=== PATIENT | female | born 1990 | race Caucasian/White ===

== ENCOUNTER 2023-03-20 20:25 | Outpatient (CLI) | payer MEDICAID, SELFPAY | END 2023-03-20 20:26 | disposition home or self-care (01) | LOC: AMB 04-13 15:02 | PROVIDERS: Visit Provider Family Medicine | DX: R56.9 Unspecified convulsions (principal) | CPT/HCPCS: A0425; A0427 ==

== ENCOUNTER 2023-03-20 21:06 | Emergency (ER) | payer MEDICAID, SELFPAY ==
[2023-03-20] VITALS (40 sets, daily range): BP systolic 101–129; BP diastolic 47–98; PULSE 81–130; RESP 11–22; TEMP 36.2; O2SAT 93–100; BMI 197.7
[2023-03-20] MEDS: 0.9 % SODIUM CHLORIDE 1000 ml 1,000 ML 125 ML IV (21:20)
[2023-03-20] MEDS: PROPOFOL 10 MG/ML INJ 150 MG IVP (21:21)
[2023-03-20] MEDS: MIDAZOLAM HCL 1 MG/ML inj 4 MG IVP (21:21)
[2023-03-20] MEDS: PROPOFOL 10 MG/ML INJ 50 MG IVP (21:21)
[2023-03-20] MEDS: SUCCINYLCHOLINE 20 MG/ML INJ 100 MG IVP (21:25)
[2023-03-20] MEDS: propofoL 1,000 MG/100 ML ML 34.2 MG IVPB (21:30)
[2023-03-20] MEDS: fentaNYL 100 MCG/2 ML inj IVP (21:38)
--- NOTE | 2023-03-20 21:43 | CRLHL7_ITS ---
For Patients: As a result of the Century Cures Act, medical imaging exams and procedure reports are released immediately into your electronic medical record. You may view this report before your referring provider. If you have questions, please contact your health care provider. INDICATION: Intubation placement TECHNIQUE: Chest 1 view. Permanently recorded images are archived. COMPARISON: None. FINDINGS/IMPRESSION: : Lines and tubes: The endotracheal tube tip is approximately 6 mm above the chevy. Recommend slight retraction. Subdiaphragmatic enteric tube with the tip projecting over the mid stomach Partially imaged, vertically oriented redundant tubing along the right aspect the thorax and abdomen. Unclear etiology and location. The redundancy excludes a ventriculoperitoneal shunt catheter. Recommend clinical correlation. Low lung volumes with bronchovascular crowding. Left basilar opacity likely represents atelectasis; however, cannot exclude aspiration or infection. No definite pleural effusion or pneumothorax. The cardiomediastinal silhouette is unremarkable. The osseous structures are unremarkable for age. Dictated by Tim Valdez MD @ 03/20/2023 10:44:59 PM (Electronically Signed)
[2023-03-20] MEDS: 0.9 % SODIUM CHLORIDE 500 ML 500 ML 1000 ML IV (22:00)
--- NOTE | 2023-03-20 22:12 | PC.NURSE ---
Arrived via EMS with status seizures. Upon arrival pt yelling, seizures and then an apneic period. BS 200.Pt c/o of pain in leg. don't let me ! All cares explained.
--- NOTE | 2023-03-20 22:21 | ED_ITS ---
HPI - Seizure General Time Seen by Provider: 22:21 Date Seen: 03/20/23 Chief Complaint: Seizure Stated Complaint: siezure Source: patient, EMS and RN notes reviewed Mode of arrival: EMS Limitations: altered mental status History of Present Illness HPI Narrative: Christel is a 33-year-old female with a history of autism spectrum, asthma, prediabetes as well as seizure disorder who comes to the emergency room for evaluation and treatment of ongoing seizures. Patient is visiting her friend here and is originally from the [facility]. EMS was called to a home in this response area to find patient with ongoing seizure activity described as grand mall by the infrastructure security architect. Christel was noted to have had seizures last week and was hospitalized for 3-4 days according to a friend at [facility]. As far as a friend knows there has been no recent trauma falls and there has been no drug use. Paramedics note that they were unable to establish IV access and thus she patient was given Versed intranasally which briefly stopped the seizure before it began again. Patient was then given 10 mg IM Versed. Attempts at IV placement unsuccessful and an IO in the right tibial did not flush easily. Patient continued to have intermittent seizures and route to the hospital with no loss of bowel or bladder control and with brief episodes of talking mostly concerning the IO causing her pain. EMS notes blood sugar greater than 200 and route. Upon arrival patient was noted to be rather confused but maintaining airway. Once we got into the room she appeared to have decreased respirations and was given airway assistance with BVM. She then became aware was breathing talking but would intermittently have her eyes deviate to the back of her head and she would then start having seizure-like movements. This continued and at 1 point she did have some vomitus and excess saliva in the mouth and decision was made to intubate. Addendum: Medications that we have prepackaged in the bag that accompanies patient include fluoxetine Cetirizine Vitamin-D Pantoprazole Famotidine Topiramate Hydroxyzine Trazodone at the evening doxepin Olanzapine Related Data Allergies Allergy/AdvReac Type Severity Reaction Status Date / Time amoxicillin Allergy Unknown Verified 03/20/23 21:55 Latex, Natural Rubber Allergy Unknown Verified 03/20/23 21:55 Opioids - Morphine Analogues Allergy Unknown Verified 03/20/23 21:55 Review of Systems Status of ROS: Reports: unobtainable due to mental status Narrative: Per patient's friend no recent trauma. Recent hospitalization at [place] for seizures. Exam Narrative: Exam Narrative: Able to access patient's phone which gave us information regarding her medications as well as medical problems. This does include asthma, pre diabetes, seizure disorder. Her friend does tell her that she does have autism as well. Patient was awake initially able to focus on me and state that she did not want and I 0 and would look at her legs. She would then have episodes of staring eye deviation and whole body shaking that would last for 30-45 seconds. Her heart is with a tachycardic rate in the 120s to 130s. Her lungs are clear her abdomen is soft she is moving all her extremities purposefully when she is awake. She has no evidence of trauma on her head. Her okay oral cavity shows dentition intact. No swelling of the mucous membranes. Fine erythematous reticular type rash on the neck and upper chest. No other evidence of rash. Const: Vital Signs, click to edit/add: Vital Signs - 24 hr 03/20/23 21:10 03/20/23 21:10 03/20/23 21:45 Temperature 97.2 F L Pulse Rate Pulse Rate [Pulse Oximeter] 130 H Respiratory Rate 22 Blood Pressure Pulse Oximetry 94 96 Oxygen Delivery Me thod Ambu-Bag Room Air Oxygen Flow Rate 10 03/20/23 21:45 03/20/23 21:46 03/20/23 21:47 Temperature Pulse Rate 109 H 107 H 105 H Pulse Rate [Pulse Oximeter] Respiratory Rate 13 11 L 12 Blood Pressure 116/98 H 101/47 L Pulse Oximetry 98 98 98 Oxygen Delivery Me thod Oxygen Flow Rate 03/20/23 21:51 03/20/23 21:56 03/20/23 22:00 Temperature Pulse Rate 104 H 105 H 102 H Pulse Rate [Pulse Oximeter] Respiratory Rate 12 17 18 Blood Pressure 106/59 L 108/58 L Pulse Oximetry 98 93 94 Oxygen Delivery Me thod Oxygen Flow Rate 03/20/23 22:02 03/20/23 22:06 03/20/23 22:11 Temperature Pulse Rate 103 H 101 H 100 Pulse Rate [Pulse Oximeter] Respiratory Rate 18 18 18 Blood Pressure 123/54 L 109/59 L 110/69 Pulse Oximetry 94 96 96 Oxygen Delivery Me thod Oxygen Flow Rate 03/20/23 22:15 03/20/23 22:17 03/20/23 22:21 Temperature Pulse Rate 97 102 H 96 Pulse Rate [Pulse Oximeter] Respiratory Rate 18 16 17 Blood Pressure 112/73 113/73 Pulse Oximetry 97 97 98 Oxygen Delivery Me thod Oxygen Flow Rate 03/20/23 22:26 03/20/23 22:30 03/20/23 22:31 Temperature Pulse Rate 94 92 92 Pulse Rate [Pulse Oximeter] Respiratory Rate 17 17 17 Blood Pressure 112/71 115/74 Pulse Oximetry 98 98 98 Oxygen Delivery Me thod Oxygen Flow Rate 03/20/23 22:36 03/20/23 22:37 03/20/23 22:41 Temperature Pulse Rate 91 89 89 Pulse Rate [Pulse Oximeter] Respiratory Rate 17 17 17 Blood Pressure 114/75 114/78 Pulse Oximetry 99 99 99 Oxygen Delivery Me thod Oxygen Flow Rate 03/20/23 22:45 03/20/23 22:46 03/20/23 22:51 Temperature Pulse Rate 89 90 90 Pulse Rate [Pulse Oximeter] Respiratory Rate 17 17 18 Blood Pressure 121/80 126/89 Pulse Oximetry 99 99 100 Oxygen Delivery Me thod Oxygen Flow Rate 03/20/23 22:56 03/20/23 23:00 03/20/23 23:01 Temperature Pulse Rate 88 88 88 Pulse Rate [Pulse Oximeter] Respiratory Rate 18 17 18 Blood Pressure 121/86 121/81 Pulse Oximetry 99 99 99 Oxygen Delivery Me thod Oxygen Flow Rate 03/20/23 23:06 03/20/23 23:12 03/20/23 23:15 Temperature Pulse Rate 86 84 85 Pulse Rate [Pulse Oximeter] Respiratory Rate 18 18 18 Blood Pressure 126/89 121/83 Pulse Oximetry 100 99 99 Oxygen Delivery Me thod Oxygen Flow Rate 03/20/23 23:16 03/20/23 23:21 03/20/23 23:26 Temperature Pulse Rate 83 84 84 Pulse Rate [Pulse Oximeter] Respiratory Rate 18 18 18 Blood Pressure 122/84 123/86 125/82 Pulse Oximetry 99 99 99 Oxygen Delivery Me thod Oxygen Flow Rate 03/20/23 23:30 03/20/23 23:31 03/20/23 23:36 Temperature Pulse Rate 82 81 82 Pulse Rate [Pulse Oximeter] Respiratory Rate 18 18 18 Blood Pressure 124/83 125/87 Pulse Oximetry 99 99 99 Oxygen Delivery Me thod Oxygen Flow Rate 03/20/23 23:41 03/20/23 23:45 03/20/23 23:46 Temperature Pulse Rate 82 81 81 Pulse Rate [Pulse Oximeter] Respiratory Rate 18 18 18 Blood Pressure 126/89 122/81 Pulse Oximetry 99 99 99 Oxygen Delivery Me thod Oxygen Flow Rate Documenting provider has reviewed patient's vital signs: yes Course Course Hospital Course: Given patient's intermittent episodes of seizure and worry of airway protection I did make the decision to intubate very early. However, we did not have an established IV. We did have oral and nasal airways standing by but patient would wake up and this was very distressing to her. She did tolerate nasal cannula oxygen and BVM when she was having seizures. IV was then established in the left arm. We were able to push 100 mg of propofol and attempts at intubation of were unsuccessful as patient started gagging. We then did a continue to bag patient and 100 of vecuronium was given. Successful intubation using the glide scope and a 7.0 ET tube. Cords visualized and ET tube entering the cords accomplished. Initially patient did have decreased breath sounds on the left. We did pullback ET tube and had bilateral breath sounds as well as rising oxygen and appropriate end-tidal. Oxygen was switched from nasal cannula to ET tube at this time. O2 levels at 97%. Patient heart rate improved to 1 teens. And blood pressure was appropriate. We initially considered rocuronium as patient would occasionally have episodes of body twitching but would like to hold off on this for now. Instead she was placed on propofol drip at 100 mcg per hour. Fentanyl l 100 mcg given and heart rate normalizes. Patient then placed on vent. Keppra 1 g IV currently giving. Patient completed 1 L of normal saline and is now on maintenance fluids. An IO in the right humeral head was placed. During this time it IV was also placed in the foot. Note that the IO in the right tibia is not patent. Reevaluation(s) Reevaluation #1: Chest x-ray shows appropriate placement of ET tube. Twenty-two at the teeth. Reevaluation #2: Patient noted to have normal vital signs continues to be seizure-free on propofol drip. We are decreasing that amount to 75 mcg an hour. We have ob tained acceptance from [facility] system but have still not been able to speak to a physician. Reevaluation #3: BAIT TIER was able to get IV in foot. IO removed from right tibia. Vital Signs Vital signs: Initial Vital Signs Pulse Oximetry 94 03/20/23 21:10 Oxygen Delivery Method Ambu-Bag 03/20/23 21:10 Oxygen Flow Rate 10 03/20/23 21:10 Vital Signs Pulse Oximetry 94 03/20/23 21:10 Oxygen Delivery Method Ambu-Bag 03/20/23 21:10 Oxygen Flow Rate 10 03/20/23 21:10 Temperature 97.2 F L 03/20/23 21:45 Pulse Rate 81 03/20/23 23:46 Respiratory Rate 18 03/20/23 23:46 Blood Pressure 122/81 03/20/23 23:46 Pulse Oximetry 99 03/20/23 23:46 Oxygen Delivery Method Room Air 03/20/23 21:45 Oxygen Flow Rate 10 03/20/23 21:10 MDM - Seizure MDM Narrative Medical decision making narrative: 1. Status seizure-intranasal Versed, Versed 10 mg IM, Ativan 2 mg given on scene. Here in the emergency room patient placed on propofol fall drip after intubation and Keppra 1 g is given. Patient has been stable during this time. 2. History of asthma 3. History of autism spectrum disorder 4. Disposition-currently waiting acceptance from [facility] as patient is a [place] patient. We were a bit able to obtain records after patient was intubated. She does have a history of pseudoseizures and recent evaluation at [facility] on March 11 and at [facility] on March [address] at that time that was normal. She has a history of a CERTIFIED ORTHOTIC FITTER shunt as well. According to her friend no drug use but according to her chart she has used in the past. Despite the information of pseudoseizures I did feel the need to intubate given the apneic episodes as well as the need for frequent suctioning when this would occur. I do not feel that I had any recourse but to intubate to protect the airway. 12/11/2047: Able to speak with Dr. Prasad, ICU physician at the [facility]. He does accept this patient in transfer. I did relate to her patient's past history of pseudoseizures and the need to intubate here. Did states that we did not do CT here. Did states that the labs were pending at this time. Patient continues to be stable. Propofol was decreased to 75 mcg. Patient did receive 1 g of Keppra. Lab Data Attestation: I reviewed the patient's lab results. Imaging Data Chest x-ray: Attestation: I have reviewed the pertinent imaging results. My impression: No obvious infiltrates, nor thorax. Endotracheal tube appears to be approximately 1 cm above chevy Radiologist's impression: Lines and tubes: The endotracheal tube tip is approximately 6 mm above the chevy. Recommend slight retraction. Subdiaphragmatic enteric tube with the tip projecting over the mid stomach Partially imaged, vertically oriented redundant tubing along the right aspect the thorax and abdomen. Unclear etiology and location. The redundancy excludes a ventriculoperitoneal shunt catheter. Recommend clinical correlation. Low lung volumes with bronchovascular crowding. Left basilar opacity likely represents atelectasis; however, cannot exclude aspiration or infection. No definite pleural effusion or pneumothorax. The cardiomediastinal silhouette is unremarkable. The osseous structures are unremarkable for age. Critical Care Time Critical Care Time Critical Care Time: Yes Attestation: The patient required my highest level preparedness to intervene emergently and I personally spent this critical care time directly and personally managing the patient. This critical care time included: Obtaining a history; Examining the patient; Pulse oximetry; Ordering and reviewing of studies; Arranging urgent treatment with development of a management plan; Evaluation of patients response to treatment; Frequent reassessment discussions with other providers. This critical care time was performed to assess and manage the high probability of imminent life-threatening deterioration that could result in multiorgan failure. It was exclusive of separate billable procedures and treating other patients and teaching time. Total Critical Care Time in Minutes: 60 Discharge Plan Discharge Clinical Impression: Intractable seizure disorder Patient Disposition: [facility] Discharge Location: [facility] Hosp Condition: Improved
--- NOTE | 2023-03-20 22:52 | ED.NURSE ---
Attempted to call contacts listed in patient's chart. Contact one's phone did not go through. Left brief message for her machine adjuster leader case trim and contact #2. No answer when tried to reach contact # 3.
[2023-03-20 23:59] LABS: Basophils Percent Auto 0.2 % (0.0-3.0); Hematocrit 34.2 % (33.0-51.0); Immature Granulocytes Pct Auto 0.9 %; Lymphocytes Percent Auto 37.6 % (20-44); Mean Corpuscular HGB Conc 32 gm/dL (32-36); Mean Corpuscular Hemoglobin 26 pg (26-34); Mean Corpuscular Volume 81 fL (80-100); Monocytes Percent Auto 8.5 % (0.0-11.0); Neutrophils Percent Auto 52.8 % (42.0-72.0); Platelet Count* 280 K/uL (140-440); RDW Coefficient of Variation % 14.3 % (11.5-15.5); Red Blood Count 4.24 m/uL (4.00-5.20); Slide Review Reflex No; White Blood Count* 4.36 K/uL (4.50-11.00)
[2023-03-21] VITALS (12 sets, daily range): BP systolic 127–134; BP diastolic 87–95; PULSE 82–86; RESP 14–18; O2SAT 98–100
[2023-03-21] LABS: Chloride* 108 mmol/L (96-114)
[2023-03-21 00:01] LABS: Albumin* 3.9 g/dL (3.3-5.0); Potassium* 3.7 mmol/L (3.6-5.1); Sodium* 138 mmol/L (135-149)
[2023-03-21 00:03] LABS: Carbon Dioxide* 22 mmol/L (20-32); Creatinine* 0.7 mg/dL (0.5-1.5); Est. Creatinine Clearance* 135.87; Estimated Glomerular Filt Rate 116 ml/min
[2023-03-21 00:04] LABS: Alanine Aminotransferase* 40 U/L (4-35); Alkaline Phosphatase* 74 U/L (40-150); Aspartate Amino Transferase* 45 U/L (12-35); Bilirubin Total* 0.3 mg/dL (0.1-1.5); Blood Urea Nitrogen* 13 mg/dL (5-24); Calcium* 8.6 mg/dL (8.4-10.6); Glucose* 88 mg/dL (60-115); Total Protein* 7.1 g/dL (6.0-8.3)
[2023-03-21 00:06] LABS: Ethanol* < 0.01 % (0.01-0.03)
[2023-03-21] MEDS: propofoL 1,000 MG/100 ML ML 34.2 MG IVPB (00:13)
--- NOTE | 2023-03-21 00:30 | ED.NURSE ---
pt arrived via ems having seizures, MD Pino at bedside on arrival. pt BMV r/t apnea. MD intubated, bilat lung sounds positive. 22 at teeth, oxygenation improved to upper 90%. NG tube placed at 59 low int suction, gastric fluid output. 16 f Delaney placed without complication, urine sent to lab.
[2023-03-21] MEDS: fentaNYL 100 MCG/2 ML inj IVP (00:40)
--- NOTE | 2023-03-21 00:45 | ED.NURSE ---
report to Shaan RN, pt to [address] [place] [address] u kandis brooke. ems at bedside preparing pt for transport.
== END 2023-03-21 00:49 | disposition short-term general hospital (02) ==
PROVIDERS: Emergency Provider Family Medicine
DX: G40.919 Epilepsy, unspecified, intractable, without status epilepticus (principal)
CPT/HCPCS: 31500; 36415; 71045; 80053; 80306; 81001; 82077; 85025; 94761; 96365; 96366; 96375; 99285; 99291; J0330; J1953; J2250; J2704; J3010; J7030; J7120

== ENCOUNTER 2023-03-21 00:48 | Outpatient (CLI) | payer MEDICAID, SELFPAY | END 2023-03-21 00:49 | disposition home or self-care (01) | LOC: AMB 03-26 10:56 | PROVIDERS: Visit Provider Family Medicine | DX: R56.9 Unspecified convulsions (principal) | CPT/HCPCS: A0425; A0434 ==

== ENCOUNTER 2023-11-20 17:19 | Outpatient (CLI) | payer MEDICAID, SELFPAY | END 2023-11-20 17:20 | disposition home or self-care (01) | LOC: AMB 11-21 00:41 | PROVIDERS: Visit Provider Family Medicine | DX: G40.909 Epilepsy, unspecified, not intractable, without status epilepticus (principal) | CPT/HCPCS: A0425; A0433 ==

== ENCOUNTER 2023-11-20 17:56 | Emergency (ER) | payer MEDICAID, SELFPAY ==
[2023-11-20] VITALS (46 sets, daily range): BP systolic 97–143; BP diastolic 67–126; PULSE 88–138; RESP 10–24; TEMP 36.4; O2SAT 86–100; BMI 34.0
[2023-11-20] MEDS: LORazepam 2 MG/ML inj IVP (18:08)
[2023-11-20] MEDS: 0.9 % SODIUM CHLORIDE 1000 ml 1,000 ML IV (18:10)
--- NOTE | 2023-11-20 18:13 | CT_ITS ---
Patient: ANAND ANGEL Facility:?[facility] Patient ID:?[id number] Site Patient ID:?[id number]. Site :?[id number] Study:?CT-Head WO-11/20/2023 6:49:29 PM Ordering Physician:ROBERTO Final Report: INDICATIONS: Recent seizures. Prior shunt. TECHNIQUE: CT head without contrast. COMPARISON: None available. FINDINGS: Ventricular catheter via a right parietal approach with tip terminating near the midline in the frontal horn of the left lateral ventricle appears intact. Asymmetric dilatation of the posterior left lateral ventricle is likely compensatory as a result of prior insult or developmental abnormality of the left parietal lobe. There is diffuse encephalomalacia of the left parietal and occipital lobes. No definite hydrocephalus. No significant mass effect or midline shift. No CT evidence of acute hemorrhage or infarction. No subdural hematoma. Bone windows show no acute or suspicious osseous abnormality. Mucosal thickening of the maxillary sinuses, left greater than right. IMPRESSION: 1. No acute intracranial hemorrhage or midline shift. 2. Ventricular catheter via a right parietal approach appears appropriately positioned. No hydrocephalus. 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 Dictated by Tello Brown MD @ 11/20/2023 7:40:38 PM Please note that all CT scans at this facility use dose modulation, iterative reconstruction, and/or weight-based dosing when appropriate to reduce radiation dose to as low as reasonably achievable. Dictated by: Tello Brown MD @ 11/20/2023 19:41:18 (Electronic Signature)
--- NOTE | 2023-11-20 18:16 | ED_ITS ---
HPI - General Adult General Chief complaint: Seizure Stated complaint: Seizures Time Seen by Provider: 11/20/23 18:12 History of Present Illness HPI narrative: EMS picked patient up at a friend's house with report of 11 seizures today. Patient with seizure like activity while being pulled from ambulance though patient is alert and responsive following these episodes. She received divided doses of a total of 3mg Versed NS 4MG Ativan. FSG was 118. Patient arrives with IO in left shoulder as IV access was too difficult to obtain in route . 33-year-old female to male transgender man goes by Desmond presents to emergency department brought by EMS following numerous seizures. Known history of epilepsy, actually pseudoseizures treated with topiramate. 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 History of [employer] shunt. No trauma noted recently but over the course the day has now experienced 12 seizures by the time EMS is handing off. They have an IO in the left humeral head and have given a total of 4 mg of Versed and and 3 of Ativan by the time we are evaluating. Seizures are breaking with med administration lasting a minute and half to 2 minutes. There are total body. Off oxygen EMS does report desaturations to 80%. Desmond is groaning and alert on transfer to ER cot. Complaining of pain in the left humerus. Denies recent medication changes. No fevers. Only complaint of pain again is in the left humerus. Reviewing records this last year I believe in February was intubated here for airway protection following recurrent seizures and desaturation and placed on a propofol drip. Transferred to [facility]. Medication sheet is brought here. Includes Cetirizine Montelukast Meloxicam Fluoxetine Trazodone Lurasidone 40 mg at bedtime Hydroxyzine Topiramate 150 mg b.i.d. Famotidine Pregabalin Related Data Home Medications Medication Instructions Recorded Confirmed famotidine 20 mg tablet 20 mg PO BID 11/20/23 11/20/23 fluoxetine 40 mg capsule 40 mg PO DAILY 11/20/23 11/20/23 fluticasone furoate 200 1 ea inhalation DAILY 11/20/23 11/20/23 mcg-vilanterol 25 mcg/dose inhalation powder (Breo Ellipta) hydroxyzine HCl 50 mg tablet 50 mg PO 3XD 11/20/23 11/20/23 hydroxyzine pamoate 100 mg capsule 100 mg PO QPM 11/20/23 11/20/23 levalbuterol tartrate 45 inhalation 11/20/23 mcg/actuation aerosol inhaler (Xopenex HFA) levonorgestrel-ethinyl estradiol tab PO 11/20/23 0.1 mg-20 mcg tablet (Aviane) lurasidone 40 mg tablet mg PO 11/20/23 meloxicam 15 mg tablet 15 mg PO DAILY 11/20/23 11/20/23 methocarbamol 750 mg tablet 750 mg PO 3XD 11/20/23 11/20/23 montelukast 10 mg tablet 10 mg PO DAILY 11/20/23 11/20/23 pregabalin 75 mg capsule 75 mg PO BID 11/20/23 11/20/23 rizatriptan 10 mg tablet mg PO DAILY 11/20/23 topiramate 100 mg tablet 100 mg PO BID 11/20/23 11/20/23 trazodone 100 mg tablet 200 mg PO QPM PRN 11/20/23 11/20/23 Allergies Allergy/AdvReac Type Severity Reaction Status Date / Time amoxicillin Allergy Unknown Verified 03/20/23 21:55 Latex, Natural Rubber Allergy Unknown Verified 03/20/23 21:55 Opioids - Morphine Analogues Allergy Unknown Verified 03/20/23 21:55 Review of Systems Status of ROS: Reports: 6 or more systems reviewed and unremarkable except as noted in History and below [facility] Social History Smoking Status: Unknown if ever smoked Non-prescribed substance use details: kayden service: No Exam Narrative: Exam Narrative: As Desmond is being transferred to the ER cot began seizing again. Total body. Begins foaming at the mouth clenching stiffening diffusely. IO is present at the left humeral head. There is some bleeding in the area from prior attempt. Oxygen is in place this seizure lasts approximately 2 minutes before we are able to get Ativan 2 mg drawn up and injected. I had also ordered for a L of normal saline bolus. Are attempting to obtain more IVs. This has been a challenge in the past. Desats to 91% in this seizure though on nasal cannula oxygen. Following this administration nearly immediately is conversant. Calling out about the degree of anxiety that he has. He does not appear particularly postictal. Clearly uncomfortable complaining of pain in the left humerus. Exam again with atraumatic head. Oropharynx appears to be atraumatic. Has not lost control of bowel or bladder. Lungs appear to be clear. Heart is tachycardic in regular rhythm. Abdomen is soft overweight. Appears to be nontender. Moving all extremities though protecting the left arm. Appears to have full strength. No indication trauma otherwise. Pupils are 3 mm and equal and brisk. Const: Vital Signs, click to edit/add: Vital Signs - 24 hr 11/20/23 18:15 11/20/23 18:27 11/20/23 18:28 Temperature 97.5 F L Pulse Rate 118 H 118 H Pulse Rate [Pulse Oximeter] 138 H Respiratory Rate 22 Blood Pressure 115/79 Blood Pressure [Ri ght Upper Arm] 143/126 H Pulse Oximetry 100 95 97 Oxygen Delivery Me thod Nasal Cannula Oxygen Flow Rate 6 11/20/23 18:30 11/20/23 18:58 11/20/23 19:00 Temperature Pulse Rate 117 H 124 H 114 H Pulse Rate [Pulse Oximeter] Respiratory Rate Blood Pressure Blood Pressure [Ri ght Upper Arm] Pulse Oximetry 96 96 95 Oxygen Delivery Me thod Oxygen Flow Rate 11/20/23 19:15 11/20/23 19:19 11/20/23 19:22 Temperature Pulse Rate 132 H 126 H 114 H Pulse Rate [Pulse Oximeter] Respiratory Rate 24 Blood Pressure 107/84 125/113 H Blood Pressure [Ri ght Upper Arm] Pulse Oximetry 86 L 100 97 Oxygen Delivery Me thod Oxygen Flow Rate 11/20/23 19:26 11/20/23 19:30 11/20/23 19:31 Temperature Pulse Rate 114 H 119 H 114 H Pulse Rate [Pulse Oximeter] Respiratory Rate 10 L 24 24 Blood Pressure 119/86 115/72 Blood Pressure [Ri ght Upper Arm] Pulse Oximetry 94 96 94 Oxygen Delivery Me thod Oxygen Flow Rate 11/20/23 19:37 11/20/23 19:41 11/20/23 19:45 Temperature Pulse Rate 107 H 102 H 100 Pulse Rate [Pulse Oximeter] Respiratory Rate 20 21 18 Blood Pressure 97/75 99/73 Blood Pressure [Ri ght Upper Arm] Pulse Oximetry 93 90 92 Oxygen Delivery Me thod Oxygen Flow Rate 11/20/23 19:47 11/20/23 19:52 11/20/23 19:53 Temperature Pulse Rate 102 H 98 96 Pulse Rate [Pulse Oximeter] Respiratory Rate 19 19 19 Blood Pressure 101/68 98/70 Blood Pressure [Ri t Upper Arm] Pulse Oximetry 93 95 95 Oxygen Delivery Me thod Oxygen Flow Rate 11/20/23 19:57 11/20/23 20:00 11/20/23 20:02 Temperature Pulse Rate 97 99 95 Pulse Rate [Pulse Oximeter] Respiratory Rate 18 19 18 Blood Pressure 102/71 104/74 Blood Pressure [Ri t Upper Arm] Pulse Oximetry 95 95 96 Oxygen Delivery Me thod Oxygen Flow Rate 11/20/23 20:07 11/20/23 20:11 11/20/23 20:15 Temperature Pulse Rate 99 101 H 103 H Pulse Rate [Pulse Oximeter] Respiratory Rate 18 18 19 Blood Pressure 100/72 102/77 Blood Pressure [Ri t Upper Arm] Pulse Oximetry 93 92 93 Oxygen Delivery Me thod Oxygen Flow Rate 11/20/23 20:16 11/20/23 20:30 11/20/23 20:31 Temperature Pulse Rate 99 101 H 100 Pulse Rate [Pulse Oximeter] Respiratory Rate 19 19 18 Blood Pressure 101/73 107/72 Blood Pressure [Ri t Upper Arm] Pulse Oximetry 92 93 93 Oxygen Delivery Me thod Oxygen Flow Rate 11/20/23 20:45 11/20/23 20:47 Temperature Pulse Rate 95 97 Pulse Rate [Pulse Oximeter] Respiratory Rate 17 18 Blood Pressure 102/67 Blood Pressure [Ri t Upper Arm] Pulse Oximetry 93 94 Oxygen Delivery Me thod Oxygen Flow Rate Documenting provider has reviewed patient's vital signs: yes Course Vital Signs Vital signs: Initial Vital Signs Temperature 97.5 F L 11/20/23 18:15 Temperature Source Temporal Artery Scan 11/20/23 18:15 Pulse Rate 138 H 11/20/23 18:15 Respiratory Rate 22 11/20/23 18:15 Blood Pressure 143/126 H 11/20/23 18:15 Blood Pressure Mean 131 H 11/20/23 18:15 Pulse Oximetry 100 11/20/23 18:15 Oxygen Delivery Method Nasal Cannula 11/20/23 18:15 Oxygen Flow Rate 6 11/20/23 18:15 Vital Signs Temperature 97.5 F L 11/20/23 18:15 Pulse Rate 138 H 11/20/23 18:15 Respiratory Rate 22 11/20/23 18:15 Blood Pressure 143/126 H 11/20/23 18:15 Pulse Oximetry 100 11/20/23 18:15 Oxygen Delivery Method Nasal Cannula 11/20/23 18:15 Oxygen Flow Rate 6 11/20/23 18:15 Temperature 97.5 F L 11/20/23 18:15 Pulse Rate 97 11/20/23 20:47 Respiratory Rate 18 11/20/23 20:47 Blood Pressure 102/67 11/20/23 20:47 Pulse Oximetry 94 11/20/23 20:47 Oxygen Delivery Method Nasal Cannula 11/20/23 18:15 Oxygen Flow Rate 6 11/20/23 18:15 Medications Administered Medications: Generic Name Dose Route Start Last Admin Trade Name Freq PRN Reason Stop Dose Admin Diazepam 5 mg 11/20/23 18:54 11/20/23 19:10 Diazepam 5 Mg/Ml Inj IV 5 mg ONCE PRN Administration seizures Discontinued Medications Generic Name Dose Route Start Last Admin Trade Name Freq PRN Reason Stop Dose Admin Droperidol 1.25 mg 11/20/23 19:23 11/20/23 19:30 Droperidol 2.5 Mg/Ml Inj IV 11/20/23 19:24 1.25 mg ONCE ONE Administration Sodium Chloride 1,000 mls @ 1,000 mls/hr 11/20/23 18:13 11/20/23 20:14 0.9 % Sodium Chloride 1000 Ml IV 11/20/23 19:12 Infused .Q1H ONE Infusion Lorazepam 2 mg 11/20/23 18:13 11/20/23 18:08 Lorazepam 2 Mg/Ml Inj IVP 11/20/23 18:14 2 mg ONCE ONE Administration Medical Decision Making MDM Narrative Medical decision making narrative: Think it would be prudent to scan head if possible particularly in light of the P shunt. Will have medications quickly on hand. Might need to atomize. Will likely need to be on antiepileptic drip of some sort. Had used propofol in the past. Contemplating ketamine. Bolus of Keppra. I have discussed this case already with our hospitalist for potential admission though this is a little more complicated and I anticipate transfer. 6:32 p.m. I have placed a call to [facility] specifically looking for beds. Pending call back from Neurology at this time. No availability at [facility]. Pending call back now from [facility] I have obtained information of discharge summary some General acute hospital Neurology discharge dated 03/23/2023. Admission diagnosis was concern of status epilepticus; discharge diagnosis with psychogenic nonepileptic seizure. These seizures were witnessed with EEG in place and this did confirm non epileptic status. Underlying history of chronic left parietal encephalomalacia with history of left parietal craniotomy 7:20 p.m.. Adjust attended another seizure like event. Broke this with 5 mg of diazepam IV. This event lasted approximately a minute and half. Made sure to mention directly to Desmond that medication, all the medication is in and then seizure activity broke. Does seem more fatigued or ?out of it? upon waking. He was beating on his chest a little. Did desaturate with nasal cannula in place to 81% during this event. Now trying to extricate from the bed and pulling at lines. Talking about how his mother does not care. We may need physical restraints but will trial a dosing of droperidol in light of PNES confirmed. I wonder if ketamine drip might be appropriate here or pain dosing of ketamine. [facility] has no beds in the foreseeable future but we are on their wait list. Still pending call back then from Neurology. 7:40 p.m. did receive a call back from Neurology. Reviewed records with them. Has escalated visits to emergency department regionally lately. Not being admitted. Unsure what triggers seems to be. Confirmed these are nonepileptic seizure events. ?not dangerous?. Understandably recommending avoidance of continued benzodiazepines partly as respiratory depressant. Has been helped with focusing breathing and opening and closing hands. No other recommendations. Nothing to do for him inpatient I did anticipate admitting here as rather fatigue at this point as well as does actually desaturated. We have managed to discontinue oxygen support and is oxygenating the mid 90s. Our hospitalist has some concerns about admission from a psychological standpoint. On reassessing again, did alert open eyes and drifted back to sleep. No further seizure-like activity. At this time I am anticipating discharge home with grandmother when they come to [facility]. Currently living with grandmother who lives about an hour and half from this facility. See patient discharge plan Lab Data Lab results reviewed: Yes I reviewed the patient's lab results Labs: Lab Results 11/20/23 11/20/23 11/20/23 Range/Units 18:25 18:50 19:03 WBC 5.96 (4.50-11.00) K/uL RBC 5.44 H (4.00-5.20) m/uL Hgb 13.7 (12.0-16.0) gm/dL Hct 42.4 (33.0-51.0) % MCV 78 L (80-100) fL MCH 25 L (26-34) pg MCHC 32 (32-36) gm/dL RDW Coeff of [place] 14.2 (11.5-15.5) % Plt Count 326 (140-440) K/uL Neut % (Auto) 49.1 (42.0-72.0) % Lymph % (Auto) 42.6 (20-44) % [place] % (Auto) 7.2 (0.0-11.0) % Eos % (Auto) 0.0 (0.0-7.0) % Baso % (Auto) 0.3 (0.0-3.0) % Neut # (Auto) 2.92 (1.7-7.0) K/uL Lymph # (Auto) 2.54 (0.90-2.90) K/uL [place] # (Auto) 0.40 (0.00-0.90) K/UL Eos # (Auto) 0.00 (0.00-0.50) K/uL Baso # (Auto) 0.02 (0.00-0.30) K/uL Abs Immat Gran (auto) 0.05 (0.00-0.30) K/uL Imm/Tot Granulo (auto) 0.8 % Sodium 142 (135-149) mmol/L Potassium 3.6 (3.6-5.1) mmol/L Chloride 111 (96-114) mmol/L Carbon Dioxide 16 L (20-32) mmol/L Anion Gap 15 (7-15) mEq/L BUN 18 (5-24) mg/dL Creatinine 0.7 (0.5-1.5) mg/dL Estimated Creat Clear 85.45 Estimated GFR 116 ml/min Glucose 119 H (60-115) mg/dL Lactate 2.1 H (0.5-1.9) mmol/L Calcium 9.6 (8.4-10.6) mg/dL Total Bilirubin 0.5 (0.1-1.5) mg/dL Direct Bilirubin 0.3 (0.0-0.5) mg/dL AST 25 (12-35) U/L ALT 25 (4-35) U/L Alkaline Phosphatase 93 (40-150) U/L C-Reactive Protein < 0.5 L (0.5-1.0) mg/dL Total Protein 9.3 H (6.0-8.3) g/dL Albumin 4.9 (3.3-5.0) g/dL HCG, Qual Negative (Negative) Urine Color Dark yellow (Yellow) Urine Appearance Cloudy A (Clear) Urine pH 7.0 (5.0-8.5) Ur Specific [place] 1.020 (1.000-1.030) Urine Protein Negative (Negative) Urine Glucose (UA) Negative (Negative) Urine Ketones Trace A (Negative) Urine Blood Negative (Negative) Urine Nitrite Negative (Negative) Urine Bilirubin Negative (Negative) Urine Urobilinogen >=8.0 A (0.2-1.0) Ur Leukocyte Esterase Trace A (Negative) Urine RBC 0-2 (0-2) Urine WBC 0-2 (0-5) Ur Squamous Epith Cells Moderate A (None-Few) Amorphous Sediment Moderate A (None) Other Sediment 0 (None) Urine Bacteria None (None) Urine Opiates Screen Negative (Negative) Ur Oxycodone Screen Negative (Negative) Urine Methadone Screen Negative (Negative) Ur Barbiturates Screen Negative (Negative) U Tricyclic Antidepress Negative (Negative) Ur Phencyclidine Scrn Negative (Negative) Ur Amphetamines Screen Negative (Negative) U Methamphetamines Scrn Negative (Negative) U Benzodiazepines Scrn POSITIVE A (Negative) Urine Cocaine Screen Negative (Negative) U Marijuana (THC) Screen Negative (Negative) Ur Drug Screen Comment See Note ECG Data Attestation: I personally reviewed and interpreted this ECG as follows: (Sinus tachycardia at 117) Critical Care Time Critical Care Time Critical Care Time: Yes Attestation: The patient required my highest level preparedness to intervene emergently and I personally spent this critical care time directly and personally managing the patient. This critical care time included: Obtaining a history; Examining the patient; Pulse oximetry; Ordering and reviewing of studies; Arranging urgent treatment with development of a management plan; Evaluation of patients response to treatment; Frequent reassessment discussions with other providers. This critical care time was performed to assess and manage the high probability of imminent life-threatening deterioration that could result in multiorgan failure. It was exclusive of separate billable procedures and treating other patients and teaching time. Total Critical Care Time in Minutes: 90 Discharge Plan Discharge Clinical Impression: Psychogenic nonepileptic seizure, Hypoxia Patient Disposition: Home w/ Parent or Adult Condition: Improved Additional Instructions: Please check in with your therapist and psychiatrist with calls tomorrow and appointments as soon as possible. Please use your coping techniques you have been instructed in. It does not appear that you have had a seizure but certainly these escalating events are concerning. It would appear that you are experiencing more stress somewhere in your life than usual. Prescriptions: No Action fluoxetine 40 mg capsule 40 mg PO DAILY hydroxyzine pamoate 100 mg capsule 100 mg PO QPM levonorgestrel-ethinyl estrad [Aviane] 0.1-20 mg-mcg tablet PO meloxicam 15 mg tablet 15 mg PO DAILY rizatriptan 10 mg tablet PO DAILY hydroxyzine HCl 50 mg tablet 50 mg PO 3XD famotidine 20 mg tablet 20 mg PO BID methocarbamol 750 mg tablet 750 mg PO 3XD trazodone 100 mg tablet 200 mg PO QPM PRN montelukast 10 mg tablet 10 mg PO DAILY topiramate 100 mg tablet 100 mg PO BID levalbuterol tartrate [Xopenex HFA] 45 mcg/actuation HFA aerosol inhaler inhalation pregabalin 75 mg capsule 75 mg PO BID lurasidone 40 mg tablet PO fluticasone furoate-vilanterol [Breo Ellipta] 200-25 mcg/dose blister with device 1 ea inhalation DAILY Follow Up/Referrals: Provider,Not a Local [Primary Care Provider] - Stand Alone Forms: [employer] Info Instructions
[2023-11-20 18:35] LABS: Lactate* 2.1 mmol/L (0.5-1.9)
[2023-11-20 19:01] LABS: Appearance Urine Cloudy (Clear); Bilirubin Urine Negative (Negative); Blood Urine Negative (Negative); Color Urine Dark yellow (Yellow); Glucose Urine Negative (Negative); Ketones Urine Trace (Negative); Leukocyte Esterase Urine Trace (Negative); Nitrite Urine Negative (Negative); Protein Urine Negative (Negative); Urobilinogen Urine >=8.0 (0.2-1.0)
[2023-11-20 19:06] LABS: Albumin* 4.9 g/dL (3.3-5.0); Chloride* 111 mmol/L (96-114); Potassium* 3.6 mmol/L (3.6-5.1); Sodium* 142 mmol/L (135-149)
[2023-11-20 19:08] LABS: Creatinine* 0.7 mg/dL (0.5-1.5); Est. Creatinine Clearance* 85.45; Estimated Glomerular Filt Rate 116 ml/min
[2023-11-20 19:09] LABS: Alanine Aminotransferase* 25 U/L (4-35); Alkaline Phosphatase* 93 U/L (40-150); Anion Gap 15 mEq/L (7-15); Aspartate Amino Transferase* 25 U/L (12-35); Basophils Absolute Auto 0.02 K/uL (0.00-0.30); Basophils Percent Auto 0.3 % (0.0-3.0); Bilirubin Direct* 0.3 mg/dL (0.0-0.5); Bilirubin Total* 0.5 mg/dL (0.1-1.5); Blood Urea Nitrogen* 18 mg/dL (5-24); Carbon Dioxide* 16 mmol/L (20-32); Glucose* 119 mg/dL (60-115); Hematocrit 42.4 % (33.0-51.0); Hemoglobin* 13.7 gm/dL (12.0-16.0); Immature Granulocytes Abs Auto 0.05 K/uL (0.00-0.30); Immature Granulocytes Pct Auto 0.8 %; Lymphocytes Absolute Auto 2.54 K/uL (0.90-2.90); Lymphocytes Percent Auto 42.6 % (20-44); Mean Corpuscular HGB Conc 32 gm/dL (32-36); Mean Corpuscular Hemoglobin 25 pg (26-34); Mean Corpuscular Volume 78 fL (80-100); Monocytes Percent Auto 7.2 % (0.0-11.0); Neutrophils Absolute Auto 2.92 K/uL (1.7-7.0); Neutrophils Percent Auto 49.1 % (42.0-72.0); Platelet Count* 326 K/uL (140-440); RDW Coefficient of Variation % 14.2 % (11.5-15.5); Red Blood Count 5.44 m/uL (4.00-5.20); Total Protein* 9.3 g/dL (6.0-8.3); White Blood Count* 5.96 K/uL (4.50-11.00)
[2023-11-20 19:10] LABS: Calcium* 9.6 mg/dL (8.4-10.6); Slide Review Reflex No
[2023-11-20] MEDS: MIDAZOLAM HCL 1 MG/ML inj 5 MG IVP (19:10)
[2023-11-20 19:19] LABS: C Reactive Protein* < 0.5 mg/dL (0.5-1.0)
[2023-11-20 19:24] LABS: RBC Urine 0-2 (0-2); WBC Urine 0-2 (0-5)
[2023-11-20 19:25] LABS: Amorphous Sediment Urine Moderate; Other Sediment Urine 0; Squamous Epithelial Cell Urine Moderate (None-Few)
[2023-11-20] MEDS: droperidoL 2.5 MG/ML inj 1.25 MG IV (19:30)
[2023-11-20 19:53] LABS: HCG Qualitative Serum* Negative (Negative)
[2023-11-20 20:28] LABS: Amphetamine Screen Urine Negative (Negative); Barbiturate Screen Urine Negative (Negative); Benzodiazepines Screen Urine POSITIVE (Negative); Cannabinoid Screen Urine Negative (Negative); Cocaine Screen Urine Negative (Negative); Methadone Screen Urine Negative (Negative); Methamphetamines Screen Urine Negative (Negative); Opiate Screen Urine Negative (Negative); Oxycodone Screen Urine Negative (Negative); Phencyclidine Screen Urine Negative (Negative); Tricyclic Antidepressant Urine Negative (Negative)
[2023-11-23 05:15] LABS: Topiramate 8.2 ug/mL (5.0-20.0)
== END 2023-11-20 23:16 | disposition home or self-care (01) ==
PROVIDERS: Emergency Provider Family Medicine
DX: R56.9 Unspecified convulsions (principal); R09.02 Hypoxemia
CPT/HCPCS: 36415; 70450; 80048; 80076; 80201; 80306; 81001; 83605; 84703; 85025; 86140; 87086; 93005; 96361; 96374; 96375; 99284; 99291; 99292; J1790; J2060; J2250; J3360; J7030

== ENCOUNTER 2023-11-21 15:54 | Outpatient (CLI) | payer MEDICAID, SELFPAY | END 2023-11-21 15:55 | disposition home or self-care (01) | LOC: AMB 11-30 09:05 | PROVIDERS: Visit Provider Emergency Medicine | DX: R56.9 Unspecified convulsions (principal) | CPT/HCPCS: A0425; A0427 ==

== ENCOUNTER 2023-11-21 16:19 | Emergency (ER) | payer MEDICAID, SELFPAY ==
[2023-11-21 16:27] VITALS: BP 103/78; PULSE 104; RESP 18; TEMP 36.8; O2SAT 93; BMI 30.2
--- NOTE | 2023-11-21 17:02 | ED.GENADULT ---
HPI - General Adult General Time Seen by Provider: 16:45 Date Seen: 11/21/23 Chief complaint: Seizure Stated complaint: Seizure Time Seen by Provider: 11/21/23 16:27 Source: patient, EMS, RN notes reviewed and old records reviewed Mode of arrival: EMS Limitations: no limitations History of Present Illness HPI narrative: Desmond is a 33-year-old transgender female to male patient brought in by EMS for reported seizures. EMS has given Desmond a total of 10 mg IM Versed in route, unable to obtain IV access. Patient was in our ER yesterday as well as in February. In February patient was intubated for concern of no airway management. This patient does have reported hypoxia with their spells of seizures but when benzodiazepines are on board. When the patient was transferred to the [facility] ER in February, it is found out yesterday that there was no EEG G activity supporting any seizure diagnosis, the EEG monitoring did happen during 1 of the spells. This patient is known to have pseudoseizures. Desmond and I discussed mental health stressors, Desmond states he has a therapist in [place] where he resides. He states his grandma takes care of him but would not consent for me to talk to his grandma. He states he has a neurologist but would not give me a name nor would he allowing me to talk to his Gram a where I could get name of Neurology group for him. Did review with him that we do not use benzodiazepines and pseudoseizures. States that he sometimes needs them to calm down. He denies any suicidal ideation or any suicide attempt. He has had no inadvertent ingestion of anything, states he has been taking his medicines. He had a normal head CT and evaluation yesterday. He states he has had a bit of cold but no fevers. He declines any repeat triple viral swab. He states if I am not going to do any further workup he would like to be discharge. I have reviewed with him that I would like to talk to his grandma, find out more about his medical history and have him do a tele health evaluation. He declines both of these. He is visiting friends down here. Have reviewed notes from February of 2023 as well as ED visit yesterday. Patient does have a ventricular catheter, no hydrocephalus with known encephalomalacia of the left parietal and occipital lobes. Related Data Home Medications Medication Instructions Recorded Confirmed famotidine 20 mg tablet 20 mg PO BID 11/20/23 11/20/23 fluoxetine 40 mg capsule 40 mg PO DAILY 11/20/23 11/20/23 fluticasone furoate 200 1 ea inhalation DAILY 11/20/23 11/20/23 mcg-vilanterol 25 mcg/dose inhalation powder (Breo Ellipta) hydroxyzine HCl 50 mg tablet 50 mg PO 3XD 11/20/23 11/20/23 hydroxyzine pamoate 100 mg capsule 100 mg PO QPM 11/20/23 11/20/23 levalbuterol tartrate 45 inhalation 11/20/23 mcg/actuation aerosol inhaler (Xopenex HFA) levonorgestrel-ethinyl estradiol tab PO 11/20/23 0.1 mg-20 mcg tablet (Aviane) lurasidone 40 mg tablet mg PO 11/20/23 meloxicam 15 mg tablet 15 mg PO DAILY 11/20/23 11/20/23 methocarbamol 750 mg tablet 750 mg PO 3XD 11/20/23 11/20/23 montelukast 10 mg tablet 10 mg PO DAILY 11/20/23 11/20/23 pregabalin 75 mg capsule 75 mg PO BID 11/20/23 11/20/23 rizatriptan 10 mg tablet mg PO DAILY 11/20/23 topiramate 100 mg tablet 100 mg PO BID 11/20/23 11/20/23 trazodone 100 mg tablet 200 mg PO QPM PRN 11/20/23 11/20/23 Allergies Allergy/AdvReac Type Severity Reaction Status Date / Time amoxicillin Allergy Unknown Verified 03/20/23 21:55 Latex, Natural Rubber Allergy Unknown Verified 03/20/23 21:55 Opioids - Morphine Analogues Allergy Unknown Verified 03/20/23 21:55 Review of Systems Status of ROS: Reports: 6 or more systems reviewed and unremarkable except as noted in History and below [facility] Social History Smoking Status: Unknown if ever smoked Do you use any of these nicotine containing products: None Second hand tobacco smoke exposure: No How often do you have a drink containing alcohol: never How often do you have six or more drinks on one occasion: Never AUDIT-C Alcohol total score: 0 Non-prescribed substance use: denies use Non-prescribed substance use details: [facility] service: No Exam Const: Vital Signs, click to edit/add: Vital Signs - 24 hr 11/21/23 16:27 Temperature 98.3 F Pulse Rate [Right Pulse Oximeter] 104 H Respiratory Rate 18 Blood Pressure [Ri ght Upper Arm] 103/78 Pulse Oximetry 93 Oxygen Delivery Me thod Room Air Desmond is visualized rolling in bed when I come in. He is drowsy from the effects of the benzodiazepines but is alert, interactive. Vital signs are stable. Pupils are small and symmetric, conjugate gaze, no nystagmus, sclera clear. Symmetrical facial function. TMs canals are normal, anterior nares are normal, no evidence of infection or drainage. Oropharynx with normal dentition, tongue normal, no traumatic change. Speech is normal. Neck is supple. Lungs are clear, good air entry, no wheezing or crackles. CV regular rate and rhythm, no murmur, normal S1-S2, no S3-S4. Abdomen is soft, no rebound or guarding. Moving extremities equally, following commands, no rashes or traumatic changes of extremities noted. Documenting provider has reviewed patient's vital signs: yes Course Course ED Course: Desmond is requesting discharge we are not going to do more. I have had a discussion with Desmond that for pseudoseizures benzodiazepines are certainly not indicated. He is declining any conversation with his grandmother on behalf of her ER visit today. I would like more information but he is refusing. He is declining telehealth. I have offered triple swab for underlying reported cold. There is no fever, clinically no evidence of any significant physical changes that I would do more intervention on. Labs from yesterday were normal, head CT was done yesterday. I will be talking to medical direction through EMS as well, may need to try to avoid benzodiazepines in this patient. Vital Signs Vital signs: Initial Vital Signs Temperature 98.3 F 11/21/23 16:27 Temperature Source Temporal Artery Scan 11/21/23 16:27 Pulse Rate 104 H 11/21/23 16:27 Respiratory Rate 18 11/21/23 16:27 Blood Pressure 103/78 11/21/23 16:27 Blood Pressure Mean 86 11/21/23 16:27 Blood Pressure Position Sitting 11/21/23 16:27 Pulse Oximetry 93 11/21/23 16:27 Oxygen Delivery Method Room Air 11/21/23 16:27 Vital Signs Temperature 98.3 F 11/21/23 16:27 Pulse Rate 104 H 11/21/23 16:27 Respiratory Rate 18 11/21/23 16:27 Blood Pressure 103/78 11/21/23 16:27 Pulse Oximetry 93 11/21/23 16:27 Oxygen Delivery Method Room Air 11/21/23 16:27 Temperature 98.3 F 11/21/23 16:27 Pulse Rate 104 H 11/21/23 16:27 Respiratory Rate 18 11/21/23 16:27 Blood Pressure 103/78 11/21/23 16:27 Pulse Oximetry 93 11/21/23 16:27 Oxygen Delivery Method Room Air 11/21/23 16:27 Discharge Plan Discharge Clinical Impression: Psychogenic nonepileptic seizure Patient Disposition: Home, Self-Care Condition: Stable Instructions: Conversion Disorder (ED) Additional Instructions: I recommend that you follow-up with Psychiatry. Stay on your current medications. Activity Level: Activity as Tolerated Prescriptions: No Action fluoxetine 40 mg capsule 40 mg PO DAILY hydroxyzine pamoate 100 mg capsule 100 mg PO QPM levonorgestrel-ethinyl estrad [Aviane] 0.1-20 mg-mcg tablet PO meloxicam 15 mg tablet 15 mg PO DAILY rizatriptan 10 mg tablet PO DAILY hydroxyzine HCl 50 mg tablet 50 mg PO 3XD famotidine 20 mg tablet 20 mg PO BID methocarbamol 750 mg tablet 750 mg PO 3XD trazodone 100 mg tablet 200 mg PO QPM PRN montelukast 10 mg tablet 10 mg PO DAILY topiramate 100 mg tablet 100 mg PO BID levalbuterol tartrate [Xopenex HFA] 45 mcg/actuation HFA aerosol inhaler inhalation pregabalin 75 mg capsule 75 mg PO BID lurasidone 40 mg tablet PO fluticasone furoate-vilanterol [Breo Ellipta] 200-25 mcg/dose blister with device 1 ea inhalation DAILY Follow Up/Referrals: Provider,Not a Local [Primary Care Provider] - [facility]
== END 2023-11-21 17:24 | disposition home or self-care (01) ==
PROVIDERS: Emergency Provider Family Medicine
DX: F44.5 Conversion disorder with seizures or convulsions (principal)
CPT/HCPCS: 99283

== ENCOUNTER 2023-11-22 17:42 | Outpatient (CLI) | payer MEDICAID, SELFPAY | END 2023-11-22 17:43 | disposition home or self-care (01) | LOC: AMB 11-30 18:59 | PROVIDERS: Visit Provider Family Medicine | DX: R56.9 Unspecified convulsions (principal) | CPT/HCPCS: A0425; A0427 ==

== ENCOUNTER 2023-11-22 18:12 | Emergency (ER) | payer MEDICAID, SELFPAY ==
[2023-11-22 18:18] VITALS: BP 109/88; PULSE 113; RESP 22; TEMP 36.6; O2SAT 96; BMI 26.5
--- NOTE | 2023-11-22 20:11 | ED_ITS ---
HPI - General Adult General Chief complaint: Seizure Stated complaint: seizure Time Seen by Provider: 11/22/23 18:23 Source: patient Mode of arrival: ambulatory Limitations: no limitations History of Present Illness HPI narrative: Patient is a 33-year-old transgender male with a history of psychogenic nonepileptic seizures. Please see previous notes from yesterday and the day before for further details. Apparently patient was having a seizure while at his friend's house today and so the ambulance was called. Upon arrival patient is still seizing, Dr. Raman met the patient in the room and gave the patient a sternal rub. The patient immediately stopped seizing and became very angry. When I arrived in the room patient is sitting up in bed eating crackers and drinking Coke. He tells me that he has a protocol with his friends that if he sees for more than 3 minutes they are to call the ambulance and that is what happened today. Denies biting his tongue or losing any control of bladder or bowels. No postictal state. Related Data Home Medications Medication Instructions Recorded Confirmed famotidine 20 mg tablet 20 mg PO BID 11/20/23 11/20/23 fluoxetine 40 mg capsule 40 mg PO DAILY 11/20/23 11/20/23 fluticasone furoate 200 1 ea inhalation DAILY 11/20/23 11/20/23 mcg-vilanterol 25 mcg/dose inhalation powder (Breo Ellipta) hydroxyzine HCl 50 mg tablet 50 mg PO 3XD 11/20/23 11/20/23 hydroxyzine pamoate 100 mg capsule 100 mg PO QPM 11/20/23 11/20/23 levalbuterol tartrate 45 inhalation 11/20/23 mcg/actuation aerosol inhaler (Xopenex HFA) levonorgestrel-ethinyl estradiol tab PO 11/20/23 0.1 mg-20 mcg tablet (Aviane) lurasidone 40 mg tablet mg PO 11/20/23 meloxicam 15 mg tablet 15 mg PO DAILY 11/20/23 11/20/23 methocarbamol 750 mg tablet 750 mg PO 3XD 11/20/23 11/20/23 montelukast 10 mg tablet 10 mg PO DAILY 11/20/23 11/20/23 pregabalin 75 mg capsule 75 mg PO BID 11/20/23 11/20/23 rizatriptan 10 mg tablet mg PO DAILY 11/20/23 topiramate 100 mg tablet 100 mg PO BID 11/20/23 11/20/23 trazodone 100 mg tablet 200 mg PO QPM PRN 11/20/23 11/20/23 Allergies Allergy/AdvReac Type Severity Reaction Status Date / Time amoxicillin Allergy Unknown Verified 03/20/23 21:55 Latex, Natural Rubber Allergy Unknown Verified 03/20/23 21:55 Opioids - Morphine Analogues Allergy Unknown Verified 03/20/23 21:55 Review of Systems Status of ROS: Reports: 10 or more systems reviewed and unremarkable except as noted in History and below [facility] Social History Smoking Status: Current some day smoker Do you use any of these nicotine containing products: Vaping Products Second hand tobacco smoke exposure: No How often do you have a drink containing alcohol: never How often do you have six or more drinks on one occasion: Never AUDIT-C Alcohol total score: 0 Non-prescribed substance use: denies use Non-prescribed substance use details: [facility] service: No Exam Narrative: Exam Narrative: Well-nourished well-developed patient in no acute distress. Alert and oriented x3. Answers questions appropriately. Mood and affect are appropriate. Thoughts are goal oriented and rational. No tangential or magical thinking noted. Patient speaks in full sentences without needing to catch their breath. Speech is not slurred or pressured. HEENT: Normocephalic atraumatic. Pupils are equally round reactive to light. Extraocular muscles are intact. Conjunctivae are moist without any icterus noted. Moist mucous membranes. Posterior pharynx is normal. Neck is soft without any lymphadenopathy or thyromegaly. No masses are appreciated. Cardiovascular: Heart is regular rate and rhythm S1 and S2 are present without any murmurs. Lungs: Clear to auscultation bilaterally no wheezes rhonchi or rales are appreciated. Patient takes deep breaths without any discomfort. Abdomen: Soft and nontender nondistended with normal bowel sounds. No guarding or rebound. No masses or organomegaly appreciated. Extremities: Bilateral lower extremities are without edema. Normal DP and PT pulses. Skin: Well perfused without any obvious rashes. Const: Vital Signs, click to edit/add: Vital Signs - 24 hr 11/22/23 18:18 Temperature 97.9 F Pulse Rate [Pulse Oximeter] 113 H Respiratory Rate 22 Blood Pressure [Le ft Upper Arm] 109/88 Pulse Oximetry 96 Oxygen Delivery Me thod Room Air Course Course ED Course: Discussed now that he is feeling better is not a whole lot for us to do at this time. We discussed doing any test to see if there is anything else causing symptoms today. We even discussed a period of monitoring. Patient states that he would like to be discharged. Vital Signs Vital signs: Initial Vital Signs Temperature 97.9 F 11/22/23 18:18 Temperature Source Temporal Artery Scan 11/22/23 18:18 Pulse Rate 113 H 11/22/23 18:18 Pulse Rhythm Regular 11/22/23 18:18 Respiratory Rate 22 11/22/23 18:18 Blood Pressure 109/88 11/22/23 18:18 Blood Pressure Mean 95 11/22/23 18:18 Blood Pressure Position Supine 11/22/23 18:18 Pulse Oximetry 96 11/22/23 18:18 Oxygen Delivery Method Room Air 11/22/23 18:18 Vital Signs Temperature 97.9 F 11/22/23 18:18 Pulse Rate 113 H 11/22/23 18:18 Respiratory Rate 22 11/22/23 18:18 Blood Pressure 109/88 11/22/23 18:18 Pulse Oximetry 96 11/22/23 18:18 Oxygen Delivery Method Room Air 11/22/23 18:18 Temperature 97.9 F 11/22/23 18:18 Pulse Rate 113 H 11/22/23 18:18 Respiratory Rate 22 11/22/23 18:18 Blood Pressure 109/88 11/22/23 18:18 Pulse Oximetry 96 11/22/23 18:18 Oxygen Delivery Method Room Air 11/22/23 18:18 Medical Decision Making MDM Narrative Medical decision making narrative: 33-year-old transgender male with nonepileptic psychogenic seizures. Patient back to normal state of health. Discharged home. Medical Records Medical records reviewed: Yes I reviewed the patient's medical records Discharge Plan Discharge Clinical Impression: Psychogenic nonepileptic seizure Patient Disposition: Home, Self-Care Condition: Stable Additional Instructions: Follow-up with your doctors as needed. Prescriptions: No Action fluoxetine 40 mg capsule 40 mg PO DAILY hydroxyzine pamoate 100 mg capsule 100 mg PO QPM levonorgestrel-ethinyl estrad [Aviane] 0.1-20 mg-mcg tablet PO meloxicam 15 mg tablet 15 mg PO DAILY rizatriptan 10 mg tablet PO DAILY hydroxyzine HCl 50 mg tablet 50 mg PO 3XD famotidine 20 mg tablet 20 mg PO BID methocarbamol 750 mg tablet 750 mg PO 3XD trazodone 100 mg tablet 200 mg PO QPM PRN montelukast 10 mg tablet 10 mg PO DAILY topiramate 100 mg tablet 100 mg PO BID levalbuterol tartrate [Xopenex HFA] 45 mcg/actuation HFA aerosol inhaler inhalation pregabalin 75 mg capsule 75 mg PO BID lurasidone 40 mg tablet PO fluticasone furoate-vilanterol [Breo Ellipta] 200-25 mcg/dose blister with device 1 ea inhalation DAILY Follow Up/Referrals: Provider,Not a Local [Primary Care Provider] - Stand Alone Forms: [facility] Info Instructions
== END 2023-11-22 19:02 | disposition home or self-care (01) ==
LOC: ED 18:49
PROVIDERS: Emergency Provider Family Medicine
DX: F44.5 Conversion disorder with seizures or convulsions (principal)
CPT/HCPCS: 81001; 99283; 99284